=== PATIENT | female | born 1985 | race Caucasian/White ===

== ENCOUNTER 2017-01-22 09:13 | Emergency (ER) | payer OTHER, SELFPAY ==
[~2017-01-22] VITALS: Ht 154.9 cm; Wt 56.8 kg
[2017-01-22] MEDS ORDERED: IBUP80TA PO (09:43)
[2017-01-22] MEDS ORDERED: ONDANSETRON 4MG/2ML VIAL (J2405) IV ONE (09:45)
[2017-01-22 10:00] LABS: ADD MANUAL DIFFER YES; MEAN CORPUSCULAR HEMOGLOBIN 28.7 pg (27.0-33.0); MEAN CORPUSCULAR HGB CONC 32.1 g/dl (32.0-36.5); MEAN CORPUSCULAR VOLUME 89.3 fl (80.0-96.0); PLATELET COUNT, AUTOMATED 278 k/mm3 (150-450); RED CELL DISTRIBUTION WIDTH 13.1 % (11.5-14.5)
[2017-01-22] MEDS ORDERED: NS 1,000 ML IV ONE (10:00)
[2017-01-22 10:18] LABS: ALBUMIN 3.2 GM/DL (3.2-5.2); ALBUMIN/GLOBULIN RATIO 0.82 (1.00-1.93); ALKALINE PHOSPHATASE 169 U/L (45-117); ALT/SGPT 198 U/L (12-78); ANION GAP 7 MEQ/L (8-16); AST/SGOT 104 U/L (15-37); BILIRUBIN,DIRECT 0.3 MG/DL (0.0-0.2); BILIRUBIN,TOTAL 0.8 MG/DL (0.2-1.0); BLOOD UREA NITROGEN 9 MG/DL (7-18); CALCIUM LEVEL 8.7 MG/DL (8.5-10.1); CARBON DIOXIDE LEVEL 29 MEQ/L (21-32); CHLORIDE LEVEL 103 MEQ/L (98-107); CREATININE FOR GFR 0.96 MG/DL (0.55-1.02); GLOMERULAR FILTRATION RATE > 60.0 (>60); GLUCOSE, FASTING 96 MG/DL (70-105); POTASSIUM SERUM 3.1 MEQ/L (3.5-5.1); SODIUM LEVEL 139 MEQ/L (136-145); TOTAL PROTEIN 7.1 GM/DL (6.4-8.2)
[2017-01-22 10:34] LABS: EOSINOPHILS 1 % (0-5)
--- NOTE | 2017-01-22 13:33 | REP ---
TRANSABDOMINAL PELVIC ULTRASOUND: Transabdominal pelvic ultrasound performed. The urinary bladder measures 3.8 x 3.8 x 5.3 cm. Uterus measures 6.9 x 3.4 x 5.0 cm. Endometrial thickness is approximately 4 mm with no evidence of endometrial fluid collection. Evaluation of the adnexal regions is somewhat limited due to bowel gas. Ovaries however appear normal in size and echotexture, right ovary measuring 2.3 x 2.1 x 1.7 cm and left ovary 2.7 x 1.6 x 2.2 cm. No adnexal mass or cyst is seen. There is no free fluid. There is no evidence of ovarian torsion with blood flow seen in each ovary with duplex Doppler evaluation, RI right ovary 0.62 and left ovary 0.49. Patient could not consent for transvaginal imaging. IMPRESSION: Essentially negative pelvic ultrasound as discussed in detail above. Signed by Lj Garzon MD 01/22/2017 03:57 P
[2017-01-22 13:35] LABS: CONTROL LINE HCG INT CTR LINE PRESENT
[2017-01-22] MEDS ORDERED: DOXYCYCLINE HYCLATE 100 MG in D5W MINI-BAG PLUS 100 ML IV ONE (17:00)
[2017-01-22] MEDS ORDERED: cefTRIAXone SOD 250 MG VIAL (J0696) IM ONE (17:00)
[2017-01-22] MEDS ORDERED: metroNIDAZOLE 500 MG in APPROPRIATE DILUENT 1 EA IV ONE (17:00)
[2017-01-22] MEDS ORDERED: DOXY100C37 PO (17:01)
[2017-01-22] MEDS ORDERED: FLAG500T PO (17:02)
[2017-01-22 17:39] LABS: METHADONE URINE NEGATIVE (NEGATIVE)
[2017-01-22] MEDS ORDERED: FLUCONAZOLE 100 MG TAB PO ONE (17:45)
[2017-01-22] MEDS ORDERED: CIPROFLOXACIN 500 MG TAB PO ONE (17:45)
[2017-01-22] MEDS ORDERED: CIPR-249 PO (18:02)
[2017-01-22 18:42] VITALS: BP 101/52
== END 2017-01-22 18:49 | disposition home or self-care (01) ==
LOC: EDBD 09:13 → M ED 09:13 → EDSEX 09:13 → M ED 18:49
DX: N39.0 Urinary tract infection, site not specified (principal); N73.0 Acute parametritis and pelvic cellulitis

== ENCOUNTER → 2017-08-06 | Outpatient (CLI) | payer MEDICAID | LOC: M OUTALCOH 07:56 | DX: F11.20 Opioid dependence, uncomplicated (principal) ==

== ENCOUNTER 2017-08-14 13:25 | Outpatient (RCR) | payer MEDICAID | END 2017-09-09 | LOC: M OUTALCOH 08-20 11:00 | DX: F11.20 Opioid dependence, uncomplicated (principal) ==

== ENCOUNTER 2017-08-24 16:28 | Emergency (ER) | payer MEDICAID | END 2017-08-24 19:15 | disposition left against medical advice (07) | LOC: M ED 16:28 | DX: Z53.29 Procedure and treatment not carried out because of patient's decision for other reasons (principal) ==

== ENCOUNTER 2017-08-25 16:28 | Emergency (ER) | payer OTHER, MEDICAID ==
[2017-08-25] MEDS: ACETAMINOPH W/CODEINE #3 TAB UD PO (19:33)
[2017-08-25] MEDS: CLINDAMYCIN 150 MG CAP PO (19:33)
== END 2017-08-25 19:40 | disposition home or self-care (01) ==
LOC: M ED 16:28
DX: L02.413 Cutaneous abscess of right upper limb (principal)
CPT/HCPCS: 99283

== ENCOUNTER 2018-02-22 09:26 | Emergency (ER) | payer OTHER, MEDICAID ==
[2018-02-22] MEDS: LIDOCAINE 1% MDV 20ML VIAL SC (09:45)
[2018-02-22] MEDS: ACETAMINOPHEN 325 MG TAB PO (10:42)
== END 2018-02-22 11:34 | disposition home or self-care (01) ==
LOC: M ED 09:26
DX: S01.81XA Laceration without foreign body of other part of head, initial encounter (principal); S06.0X0A Concussion without loss of consciousness, initial encounter; Y04.0XXA Assault by unarmed brawl or fight, initial encounter; Y07.03 Male partner, perpetrator of maltreatment and neglect; Y92.009 Unspecified place in unspecified non-institutional (private) residence as the place of occurrence of the external cause; F17.200 Nicotine dependence, unspecified, uncomplicated
CPT/HCPCS: 70450

== ENCOUNTER 2018-04-22 00:23 | Emergency (ER) | payer MEDICAID, SELFPAY, OTHER ==
[2018-04-22] MEDS: KETOROLAC 30 MG/ML VIAL (J1885) IV ×2 (01:51)
[2018-04-22] MEDS: NS 1,000 ML IV ×2 (01:51)
[2018-04-22] MEDS: CLINDAMYCIN 900 MG in APPROPRIATE DILUENT 1 EA IV (01:52)
[2018-04-22 02:03] LABS: BASO % 0.2 % (0.0-1.0); EOS % 0.2 % (0.0-3.0); HEMATOCRIT 40.5 % (36.0-47.0); IMMATURE GRANULOCYTE % 0.4 % (0-3.0); LYMPH # 2.9 10^3/uL (1.5-4.5); LYMPH % 14.9 % (24.0-44.0); MEAN CORPUSCULAR HEMOGLOBIN 27.3 pg (27.0-33.0); MEAN CORPUSCULAR HGB CONC 32.1 g/dl (32.0-36.5); MEAN CORPUSCULAR VOLUME 84.9 fl (80.0-96.0); MONO # 1.5 10^3/uL (0.0-0.8); MONO % 7.6 % (0.0-5.0); NEUTROPHILS # 14.7 10^3/uL (1.8-7.7); NEUTROPHILS % 76.7 % (36.0-66.0); PLATELET COUNT, AUTOMATED 321 10^3/uL (150-450); RED BLOOD COUNT 4.77 10^6/uL (4.00-5.40); RED CELL DISTRIBUTION WIDTH 13.5 % (11.5-14.5); WHITE BLOOD COUNT 19.2 10^3/uL (4.0-10.0)
[2018-04-22 02:27] LABS: C REACTIVE PROTEIN QUANTITATIV 6.77 MG/DL (0.00-0.30)
== END 2018-04-22 03:21 | disposition home or self-care (01) ==
LOC: M ED 00:23
DX: L03.211 Cellulitis of face (principal); F17.210 Nicotine dependence, cigarettes, uncomplicated
CPT/HCPCS: J1885

== ENCOUNTER 2018-04-30 09:13 | Emergency (ER) | payer MEDICAID, SELFPAY ==
[2018-04-30] MEDS ORDERED: KETOROLAC 30 MG/ML VIAL (J1885) IV (09:45)
[2018-04-30] MEDS ORDERED: MORPHINE 4 MG/ML 1ML VIAL/SYRINGE (J2270) IV (09:45)
[2018-04-30] MEDS: NORCO, ANEXSIA 5/325MG TABLET (HYDROcodone/ACETAMINOPHEN) PO (10:53)
[2018-04-30] MEDS: CLINDAMYCIN 150 MG CAP PO (10:53)
[2018-04-30] MEDS: KETOROLAC TROMETHAMINE 10 MG TAB PO (10:54)
[2018-04-30 11:07] LABS: BASO % 0.2 % (0.0-1.0); EOS # 0.2 10^3/uL (0.0-0.50); HEMATOCRIT 37.5 % (36.0-47.0); HEMOGLOBIN 11.9 g/dl (12.0-15.5); IMMATURE GRANULOCYTE % 0.5 % (0-3.0); LYMPH # 2.4 10^3/uL (1.5-4.5); LYMPH % 15.9 % (24.0-44.0); MEAN CORPUSCULAR HEMOGLOBIN 27.4 pg (27.0-33.0); MEAN CORPUSCULAR HGB CONC 31.7 g/dl (32.0-36.5); MEAN CORPUSCULAR VOLUME 86.2 fl (80.0-96.0); MONO # 1.1 10^3/uL (0.0-0.8); NEUTROPHILS # 11.4 10^3/uL (1.8-7.7); NEUTROPHILS % 75.4 % (36.0-66.0); PLATELET COUNT, AUTOMATED 409 10^3/uL (150-450); RED BLOOD COUNT 4.35 10^6/uL (4.00-5.40); RED CELL DISTRIBUTION WIDTH 13.8 % (11.5-14.5); WHITE BLOOD COUNT 15.1 10^3/uL (4.0-10.0)
[2018-04-30 11:29] LABS: ANION GAP 7 MEQ/L (8-16); BLOOD UREA NITROGEN 10 MG/DL (7-18); C REACTIVE PROTEIN QUANTITATIV 1.23 MG/DL (0.00-0.30); CALCIUM LEVEL 8.4 MG/DL (8.5-10.1); CARBON DIOXIDE LEVEL 29 MEQ/L (21-32); CHLORIDE LEVEL 102 MEQ/L (98-107); CREATININE FOR GFR 0.65 MG/DL (0.55-1.30); GLOMERULAR FILTRATION RATE > 60.0 (>60); GLUCOSE, FASTING 88 MG/DL (70-100); POTASSIUM SERUM 4.1 MEQ/L (3.5-5.1); SODIUM LEVEL 138 MEQ/L (136-145)
[2018-04-30 11:41] LABS: ERYTHROCYTE SEDIMENTATION RATE 22 mm/hr (0-20)
[2018-04-30] MEDS: ACETAMINOPH W/CODEINE #3 TAB UD PO (11:58)
== END 2018-04-30 12:00 | disposition home or self-care (01) ==
LOC: M ED 09:13
DX: L03.011 Cellulitis of right finger (principal); Z79.2 Long term (current) use of antibiotics
CPT/HCPCS: 73140

== ENCOUNTER 2018-05-15 15:36 | Inpatient (IN) | payer OTHER, MEDICAID ==
[2018-05-15 17:19] LABS: BASO % 0.2 % (0.0-1.0); EOS # 0.1 10^3/uL (0.0-0.50); HEMATOCRIT 40.9 % (36.0-47.0); HEMOGLOBIN 12.9 g/dl (12.0-15.5); IMMATURE GRANULOCYTE % 0.2 % (0-3.0); LYMPH # 3.5 10^3/uL (1.5-4.5); LYMPH % 27.6 % (24.0-44.0); MEAN CORPUSCULAR HEMOGLOBIN 27.4 pg (27.0-33.0); MEAN CORPUSCULAR HGB CONC 31.5 g/dl (32.0-36.5); MEAN CORPUSCULAR VOLUME 86.8 fl (80.0-96.0); MONO # 0.7 10^3/uL (0.0-0.8); MONO % 5.6 % (0.0-5.0); NEUTROPHILS # 8.3 10^3/uL (1.8-7.7); NEUTROPHILS % 65.4 % (36.0-66.0); PLATELET COUNT, AUTOMATED 420 10^3/uL (150-450); RED BLOOD COUNT 4.71 10^6/uL (4.00-5.40); RED CELL DISTRIBUTION WIDTH 13.7 % (11.5-14.5); WHITE BLOOD COUNT 12.7 10^3/uL (4.0-10.0)
[2018-05-15 17:40] LABS: ANION GAP 6 MEQ/L (8-16); BLOOD UREA NITROGEN 10 MG/DL (7-18); C REACTIVE PROTEIN QUANTITATIV 0.32 MG/DL (0.00-0.30); CALCIUM LEVEL 8.9 MG/DL (8.5-10.1); CARBON DIOXIDE LEVEL 29 MEQ/L (21-32); CHLORIDE LEVEL 102 MEQ/L (98-107); GLOMERULAR FILTRATION RATE > 60.0 (>60); GLUCOSE, FASTING 53 MG/DL (70-100); POTASSIUM SERUM 4.1 MEQ/L (3.5-5.1); SODIUM LEVEL 137 MEQ/L (136-145)
[2018-05-15 17:58] LABS: ERYTHROCYTE SEDIMENTATION RATE 10 mm/hr (0-20)
[2018-05-15] MEDS: VANCOMYCIN HCL 1,000 MG, VIAL MATE ADAPTER 1 EACH in D5W 250 ML IV ×2 (18:37→21:41)
[2018-05-15] MEDS: PIPERACILLIN/TAZOBACTAM SOD 3.375 GM in D5W MINI-BAG PLUS 50 ML IV (19:48)
[2018-05-16] MEDS: MORPHINE 4 MG/ML 1ML VIAL/SYRINGE (J2270) IV ×3 (01:53→05:58)
[2018-05-16] MEDS: PIPERACILLIN/TAZOBACTAM SOD 3.375 GM in D5W MINI-BAG PLUS 50 ML IV ×3 (01:53→14:00)
[2018-05-16] MEDS: ACETAMINOPHEN TAB 650MG DOSE (2X325MG) PO ×2 (03:08→14:07)
[2018-05-16] MEDS: VANCOMYCIN HCL 1,000 MG, VIAL MATE ADAPTER 1 EACH in D5W 250 ML IV ×2 (05:25→13:17)
[2018-05-16] MEDS: NS 1,000 ML IV ×2 (07:03→08:06)
[2018-05-16] MEDS ORDERED: NS 500 ML IV (07:30)
[2018-05-16 08:00] LABS: BASO % 0.3 % (0.0-1.0); EOS # 0.3 10^3/uL (0.0-0.50); EOS % 2.8 % (0.0-3.0); HEMATOCRIT 33.2 % (36.0-47.0); IMMATURE GRANULOCYTE % 0.2 % (0-3.0); LYMPH # 3.4 10^3/uL (1.5-4.5); LYMPH % 36.5 % (24.0-44.0); MEAN CORPUSCULAR HEMOGLOBIN 27.9 pg (27.0-33.0); MEAN CORPUSCULAR HGB CONC 32.2 g/dl (32.0-36.5); MEAN CORPUSCULAR VOLUME 86.5 fl (80.0-96.0); MONO # 0.7 10^3/uL (0.0-0.8); NEUTROPHILS # 4.9 10^3/uL (1.8-7.7); NEUTROPHILS % 53.2 % (36.0-66.0); RED BLOOD COUNT 3.84 10^6/uL (4.00-5.40); RED CELL DISTRIBUTION WIDTH 14.1 % (11.5-14.5); WHITE BLOOD COUNT 9.2 10^3/uL (4.0-10.0)
[2018-05-16 08:06] LABS: HEMOGLOBIN 10.7 g/dl (12.0-15.5); PLATELET COUNT, AUTOMATED 290 10^3/uL (150-450)
[2018-05-16 08:10] LABS: MAGNESIUM LEVEL 1.9 MG/DL (1.8-2.4)
[2018-05-16 08:28] LABS: CONTROL LINE HCG INT CTR LINE PRESENT; HCG, SERUM QUALITATIVE NEGATIVE (NEGATIVE)
[2018-05-16 08:29] LABS: ALBUMIN 2.6 GM/DL (3.2-5.2); ALBUMIN/GLOBULIN RATIO 0.76 (1.00-1.93); ALKALINE PHOSPHATASE 81 U/L (45-117); ALT/SGPT 72 U/L (12-78); ANION GAP 6 MEQ/L (8-16); AST/SGOT 57 U/L (7-37); BILIRUBIN,TOTAL 0.3 MG/DL (0.2-1.0); BLOOD UREA NITROGEN 9 MG/DL (7-18); CALCIUM LEVEL 7.9 MG/DL (8.5-10.1); CARBON DIOXIDE LEVEL 28 MEQ/L (21-32); CHLORIDE LEVEL 105 MEQ/L (98-107); CREATININE FOR GFR 0.73 MG/DL (0.55-1.30); GLOMERULAR FILTRATION RATE > 60.0 (>60); GLUCOSE, FASTING 99 MG/DL (70-100); POTASSIUM SERUM 3.8 MEQ/L (3.5-5.1); SODIUM LEVEL 139 MEQ/L (136-145)
[2018-05-16 12:44] LABS: VANCOMYCIN LEVEL TROUGH 15.3 UG/ML (10.0-20.0)
[2018-05-16] MEDS: ENOXAPARIN 40 MG/0.4 ML SYRINGE (J1650) SC (13:17)
== END 2018-05-16 19:03 | disposition left against medical advice (07) | DRG 344 ==
LOC: M ED 15:36 → M ED INP 18:51 → M MSPAV 20:48
PROC: 0HDFXZZ Extraction of Right Hand Skin, External Approach (ICD-10-PCS; principal; 2018-05-15)
DX: M86.641 Other chronic osteomyelitis, right hand (principal); B95.62 Methicillin resistant Staphylococcus aureus infection as the cause of diseases classified elsewhere; F17.210 Nicotine dependence, cigarettes, uncomplicated

== ENCOUNTER 2019-09-03 11:39 | Emergency (ER) | payer MEDICAID, OTHER, SELFPAY ==
[~2019-09-03] VITALS: Ht 154.9 cm; Wt 61.4 kg
[~2019-09-03 11:39] MED LIST: ACET-716 PO; BACT800T5 PO; CIPR-249 PO; CLEO300C2 PO; DOXY100C37 PO; FLAG500T PO; HYDR-3715 PO; IBUP1TAB6 PO; IBUP80TA PO; KETO10TAB PO; NORC1TAB7 PO
[2019-09-03] MEDS ORDERED: NS 1,000 ML IV ONE (12:30)
[2019-09-03] MEDS ORDERED: IBUP-1720 PO (13:00)
[2019-09-03 13:04] LABS: BASO % 0.4 % (0.0-1.0); EOS # 0.4 10^3/uL (0.0-0.5); EOS % 3.7 % (0.0-3.0); HEMATOCRIT 37.7 % (36.0-47.0); HEMOGLOBIN 12.2 g/dl (12.0-15.5); LYMPH # 2.8 10^3/uL (1.5-5.0); LYMPH % 24.2 % (24.0-44.0); MEAN CORPUSCULAR HEMOGLOBIN 27.2 pg (27.0-33.0); MEAN CORPUSCULAR HGB CONC 32.4 g/dl (32.0-36.5); MEAN CORPUSCULAR VOLUME 84.2 fl (80.0-96.0); MONO # 0.9 10^3/uL (0.0-0.8); MONO % 7.7 % (0.0-5.0); NEUTROPHILS # 7.2 10^3/uL (1.5-8.5); NEUTROPHILS % 63.7 % (36.0-66.0); PLATELET COUNT, AUTOMATED 445 10^3/uL (150-450); RED BLOOD COUNT 4.48 10^6/uL (4.00-5.40); WHITE BLOOD COUNT 11.4 10^3/uL (4.0-10.0)
[2019-09-03] MEDS ORDERED: LIDOCAINE 2% MDV 20 ML VIAL SC ONE (13:15)
--- NOTE | 2019-09-03 13:19 | REP ---
Right hand ultrasound in the area of right hand swelling: Ultrasonography in the area of interest of the right hand reveals a complex fluid collection measuring 3.2 x 1.2 x 3.8 cm. Color Doppler assessment identifies vascular flow at the periphery of this fluid collection. This fluid collection is nonspecific and could represent hematoma, abscess or seroma. Electronically Signed by Lj Souza MD 09/03/2019 01:10 P
[2019-09-03 13:28] LABS: ERYTHROCYTE SEDIMENTATION RATE 25 mm/hr (0-20)
[2019-09-03 13:32] LABS: BLOOD UREA NITROGEN 11 MG/DL (7-18); C REACTIVE PROTEIN QUANTITATIV 3.15 MG/DL (0.00-0.30); CALCIUM LEVEL 8.6 MG/DL (8.5-10.1); CARBON DIOXIDE LEVEL 28 MEQ/L (21-32); CHLORIDE LEVEL 102 MEQ/L (98-107); CREATININE FOR GFR 0.67 MG/DL (0.55-1.30); GLOMERULAR FILTRATION RATE > 60.0 (>60); GLUCOSE, FASTING 110 MG/DL (70-100); POTASSIUM SERUM 4.4 MEQ/L (3.5-5.1); SODIUM LEVEL 135 MEQ/L (136-145)
[2019-09-03 13:34] LABS: AMPHETAMINES LEVEL URINE POSITIVE (NEGATIVE); BARBITURATES URINE NEGATIVE (NEGATIVE); BENZODIAZEPINES URINE NEGATIVE (NEGATIVE); CANNABINOIDS URINE NEGATIVE (NEGATIVE); COCAINE METABOLITE URINE NEGATIVE (NEGATIVE); METHADONE URINE NEGATIVE (NEGATIVE); OPIATES URINE POSITIVE (NEGATIVE); PHENCYCLIDINE URINE NEGATIVE (NEGATIVE)
[2019-09-03] MEDS ORDERED: VANCOMYCIN HCL 1,250 MG in D5W 250 ML IV ONE (13:45)
[2019-09-03] MEDS ORDERED: VANCOMYCIN HCL 750 MG, VIAL MATE ADAPTER 1 EACH in D5W 250 ML IV ONE (14:00)
[2019-09-03] MEDS ORDERED: VANCOMYCIN HCL 500 MG in D5W MINI-BAG PLUS 100 ML IV ONE (15:00)
[2019-09-03] MEDS ORDERED: LR 1,000 ML IV ONE (15:15)
[2019-09-03 15:42] VITALS: BP 129/83
--- NOTE | 2019-09-05 09:45 | ED PDOC ---
Post-Departure Follow-Up [facility] faxed formal report of extrem us for fu John Farooq MD Sep 05, 2019 09:45
== END 2019-09-03 15:50 | disposition left against medical advice (07) ==
LOC: M ED 11:39
DX: L02.413 Cutaneous abscess of right upper limb (principal); L03.113 Cellulitis of right upper limb; F11.20 Opioid dependence, uncomplicated; E05.90 Thyrotoxicosis, unspecified without thyrotoxic crisis or storm; F33.9 Major depressive disorder, recurrent, unspecified; F41.9 Anxiety disorder, unspecified; F43.10 Post-traumatic stress disorder, unspecified; F17.210 Nicotine dependence, cigarettes, uncomplicated
CPT/HCPCS: 10060; 76882; 80048; 80307; 81001; 83605; 85025; 85652; 86140; 87040; 87070; 87077; 87088; 87186; 87205; 96361; 96365; 96366; 99284; J3370

== ENCOUNTER 2021-03-08 01:56 | Emergency (ER) | payer MEDICAID ==
[~2021-03-08 01:56] MED LIST changes: -DOXY100C37 PO; +DOXY1CAP62 PO; +IBUP-1720 PO
[2021-03-08 03:34] LABS: HEMATOCRIT 37.7 % (36.0-47.0); HEMOGLOBIN 12.1 g/dl (12.0-15.5); MEAN CORPUSCULAR HEMOGLOBIN 28.2 pg (27.0-33.0); MEAN CORPUSCULAR HGB CONC 32.1 g/dl (32.0-36.5); MEAN CORPUSCULAR VOLUME 87.9 fl (80.0-96.0); PLATELET COUNT, AUTOMATED 274 10^3/uL (150-450); RED BLOOD COUNT 4.29 10^6/uL (4.00-5.40); WHITE BLOOD COUNT 8.9 10^3/uL (4.0-10.0)
[2021-03-08 03:56] LABS: HCG, SERUM QUALITATIVE NEGATIVE (NEGATIVE)
[2021-03-08 04:15] LABS: ACETAMINOPHEN LEVEL < 2.0 UG/ML (10.0-30.0); ALBUMIN 3.1 GM/DL (3.2-5.2); ALT/SGPT 52 U/L (12-78); BILIRUBIN,DIRECT < 0.1 MG/DL (0.0-0.2); BILIRUBIN,TOTAL 0.4 MG/DL (0.2-1.0); BLOOD UREA NITROGEN 7 MG/DL (7-18); CALCIUM LEVEL 8.7 MG/DL (8.5-10.1); CARBON DIOXIDE LEVEL 27 MEQ/L (21-32); CHLORIDE LEVEL 108 MEQ/L (98-107); CREATININE FOR GFR 0.73 MG/DL (0.55-1.30); ETHYL ALCOHOL (ETHANOL) < 0.003 % (0.000-0.010); GLOMERULAR FILTRATION RATE > 60.0 (>60); GLUCOSE, FASTING 82 MG/DL (70-100); POTASSIUM SERUM 3.9 MEQ/L (3.5-5.1); SALICYLATE LEVEL < 1.7 MG/DL (5.0-30.0); SODIUM LEVEL 139 MEQ/L (136-145); TOTAL PROTEIN 7.6 GM/DL (6.4-8.2)
[2021-03-08 11:00] VITALS: BP 106/64
--- NOTE | 2021-03-08 21:20 | ECGEPIP ---
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
== END 2021-03-08 11:14 | disposition home or self-care (01) ==
LOC: M ED 01:56
DX: F11.129 Opioid abuse with intoxication, unspecified (principal); F17.210 Nicotine dependence, cigarettes, uncomplicated

== ENCOUNTER 2021-12-29 20:27 | Emergency (ER) | payer OTHER ==
[~2021-12-29] VITALS: Ht 160 cm; Wt 64.9 kg
[~2021-12-29 20:27] MED LIST changes: +DOXY-443 PO; -DOXY1CAP62 PO
[2021-12-29] MEDS ORDERED: NS 1,000 ML IV ONE (20:30)
[2021-12-29] MEDS ORDERED: ISOVUE-370 76% 100ML VIAL As Ordered ONE ×2 (20:33→22:12)
[2021-12-29] MEDS ORDERED: LORazepam 2 MG/ML VIAL IM STA (20:51)
[2021-12-29 22:43] LABS: INR 0.98; PARTIAL THROMBOPLASTIN TIME 22.4 SECONDS (25.9-37.0); PROTHROMBIN TIME 13.4 SECONDS (12.7-14.5)
[2021-12-29 22:52] LABS: BASO # 0.1 10^3/uL (0.0-0.2); BASO % 0.4 % (0.0-1.0); EOS % 0.1 % (0.0-3.0); HEMATOCRIT 42.6 % (36.0-47.0); HEMOGLOBIN 14.2 g/dl (12.0-15.5); LYMPH # 2.7 10^3/uL (1.5-5.0); LYMPH % 22.5 % (24.0-44.0); MEAN CORPUSCULAR HEMOGLOBIN 28.7 pg (27.0-33.0); MEAN CORPUSCULAR HGB CONC 33.3 g/dl (32.0-36.5); MEAN CORPUSCULAR VOLUME 86.1 fl (80.0-96.0); MONO # 0.9 10^3/uL (0.0-0.8); MONO % 7.3 % (2.0-8.0); NEUTROPHILS # 8.4 10^3/uL (1.5-8.5); NEUTROPHILS % 69.4 % (36.0-66.0); PLATELET COUNT, AUTOMATED 347 10^3/uL (150-450); RED BLOOD COUNT 4.95 10^6/uL (4.00-5.40); WHITE BLOOD COUNT 12.1 10^3/uL (4.0-10.0)
[2021-12-29 22:59] LABS: CK-MB VALUE MASS 1.2 NG/ML (<3.6); MB/CK RELATIVE INDEX 1.62 (< OR =4)
[2021-12-29 23:06] LABS: ALBUMIN 3.6 GM/DL (3.2-5.2); ALT/SGPT 65 U/L (12-78); AMYLASE 71 U/L (25-115); BILIRUBIN,DIRECT 0.2 MG/DL (0.0-0.2); BILIRUBIN,TOTAL 0.7 MG/DL (0.2-1.0); BLOOD UREA NITROGEN 14 MG/DL (7-18); CALCIUM LEVEL 9.2 MG/DL (8.5-10.1); CARBON DIOXIDE LEVEL 25 MEQ/L (21-32); CHLORIDE LEVEL 104 MEQ/L (98-107); CREATININE FOR GFR 0.82 MG/DL (0.55-1.30); ETHYL ALCOHOL (ETHANOL) < 0.003 % (0.000-0.010); GLOMERULAR FILTRATION RATE > 60.0 (>60); GLUCOSE, FASTING 95 MG/DL (70-100); LIPASE 152 U/L (73-393); POTASSIUM SERUM 3.9 MEQ/L (3.5-5.1); SODIUM LEVEL 139 MEQ/L (136-145)
[2021-12-30 01:42] VITALS: BP 127/77
== END 2021-12-30 01:50 | disposition home or self-care (01) ==
LOC: M ED 20:27
DX: S10.81XA Abrasion of other specified part of neck, initial encounter (principal); S00.01XA Abrasion of scalp, initial encounter; X83.8XXA Intentional self-harm by other specified means, initial encounter; Y92.148 Other place in prison as the place of occurrence of the external cause
CPT/HCPCS: 36556; 70450; 70498; 72125; 72128; 80048; 80076; 82077; 82150; 82550; 82553; 83605; 83690; 85025; 85610; 85730; 86850; 86900; 86901; 93041; 94760; 96360; 96361; 96372; 99285; J2060; Q9967

== ENCOUNTER 2023-11-30 18:05 | Emergency (ER) | payer OTHER ==
[~2023-11-30] VITALS: Ht 157.5 cm; Wt 65.3 kg
[~2023-11-30 18:05] MED LIST changes: +DOXY-323 PO; -DOXY-443 PO
[2023-11-30 20:18] LABS: BASO # 0.1 10^3/uL (0.0-0.2); BASO % 0.5 % (0.0-1.0); EOS % 0.3 % (0.0-3.0); HEMATOCRIT 48.4 % (36.0-47.0); HEMOGLOBIN 16.6 g/dl (12.0-15.5); LYMPH # 3.3 10^3/uL (1.5-5.0); LYMPH % 34.3 % (24.0-44.0); MEAN CORPUSCULAR HEMOGLOBIN 28.9 pg (27.0-33.0); MEAN CORPUSCULAR HGB CONC 34.3 g/dl (32.0-36.5); MEAN CORPUSCULAR VOLUME 84.2 fl (80.0-96.0); MONO # 0.6 10^3/uL (0.0-0.8); MONO % 5.9 % (2.0-8.0); NEUTROPHILS # 5.7 10^3/uL (1.5-8.5); NEUTROPHILS % 58.8 % (36.0-66.0); PLATELET COUNT, AUTOMATED 334 10^3/uL (150-450); RED BLOOD COUNT 5.75 10^6/uL (4.00-5.40); WHITE BLOOD COUNT 9.7 10^3/uL (4.0-10.0)
[2023-11-30 20:26] LABS: HCG, SERUM QUALITATIVE NEGATIVE (NEGATIVE)
[2023-11-30 21:29] LABS: FREE T4 0.72 NG/DL (0.89-1.76); THYROID STIMULATING HORMONE 2.142 uIU/ML (0.55-4.78)
[2023-11-30 21:32] LABS: ALBUMIN 3.9 G/DL (3.2-5.2); ALKALINE PHOSPHATASE 68 U/L (46-116); ALT/SGPT 30 U/L (7.0-40); AST/SGOT 34 U/L (<34); BILIRUBIN,DIRECT 0.1 MG/DL (<0.4); BILIRUBIN,TOTAL 0.4 MG/DL (0.3-1.2); BLOOD UREA NITROGEN 12 MG/DL (9-23); CALCIUM LEVEL 9.2 MG/DL (8.5-10.1); CARBON DIOXIDE LEVEL 20 MMOL/L (20-31); CHLORIDE LEVEL 107 MMOL/L (98-107); CK-MB VALUE MASS < 1.0 NG/ML (<3.6); CPK CREATINE PHOSPHOKINASE 43 U/L (34-145); CREATININE FOR GFR 0.66 MG/DL (0.55-1.30); GLOMERULAR FILTRATION RATE > 60.0 (>58); GLUCOSE, FASTING 80 MG/DL (60-100); MB/CK RELATIVE INDEX 2.32 (< OR =4); POTASSIUM SERUM 4.8 MMOL/L (3.5-5.1); SODIUM LEVEL 138 MMOL/L (136-145); TOTAL PROTEIN 8.2 G/DL (5.7-8.2)
[2023-11-30 21:50] LABS: D-DIMER QUANT 5.14 ug/mL (<0.5); INR 1.11
[2023-11-30] MEDS ORDERED: ISOVUE-370 76% 100ML VIAL As Ordered ONE (22:19)
[2023-12-01] MEDS: NS 1,000 ML IV ONE ×2 (00:30→04:35)
[2023-12-01] MEDS: KETOROLAC 30 MG/ML 1ML VIAL IV ONE (03:37)
[2023-12-01 06:01] VITALS: BP 140/83; TEMP 98.5
[2023-12-01] MEDS ORDERED: KETO10TAB PO (06:26)
[2023-12-01 06:31] VITALS: O2SAT 97
== END 2023-12-01 07:13 | disposition home or self-care (01) ==
LOC: M ED 18:05
DX: F19.139 Other psychoactive substance abuse with withdrawal, unspecified (principal); E04.1 Nontoxic single thyroid nodule; F17.200 Nicotine dependence, unspecified, uncomplicated
CPT/HCPCS: 36556; 71045; 71275; 80048; 80076; 82550; 82553; 84439; 84443; 84484; 84703; 85025; 85379; 85610; 85730; 93005; 93041; 94760; 96361; 96374; 99291; J1885; Q9967

== ENCOUNTER 2024-02-24 23:38 | Emergency (ER) | payer OTHER ==
[~2024-02-24] VITALS: Ht 157.5 cm; Wt 69.3 kg
[2024-02-24 23:39] VITALS: TEMP 97.1
[2024-02-25] MEDS: ONDANSETRON 4MG ORAL DISINTEGRATING TAB PO ONE (01:50)
[2024-02-25 02:24] LABS: ALBUMIN 3.8 G/DL (3.2-5.2); ALKALINE PHOSPHATASE 50 U/L (46-116); ALT/SGPT 57 U/L (7.0-40); AST/SGOT 83 U/L (<34); BILIRUBIN,DIRECT 0.1 MG/DL (<0.4); BILIRUBIN,TOTAL 0.3 MG/DL (0.3-1.2); BLOOD UREA NITROGEN 8 MG/DL (9-23); CALCIUM LEVEL 8.8 MG/DL (8.5-10.1); CARBON DIOXIDE LEVEL 29 MMOL/L (20-31); CHLORIDE LEVEL 102 MMOL/L (98-107); GLOMERULAR FILTRATION RATE > 60.0 (>58); GLUCOSE, FASTING 176 MG/DL (60-100); LIPASE 28 U/L (12-53); SODIUM LEVEL 132 MMOL/L (136-145); TOTAL PROTEIN 7.4 G/DL (5.7-8.2)
[2024-02-25 02:25] LABS: HCG, SERUM QUALITATIVE NEGATIVE (NEGATIVE)
[2024-02-25 03:40] LABS: BASO % 0.3 % (0.0-1.0); EOS # 0.1 10^3/uL (0.0-0.5); EOS % 1.1 % (0.0-3.0); HEMATOCRIT 39.5 % (36.0-47.0); HEMOGLOBIN 12.6 g/dl (12.0-15.5); LYMPH # 2.6 10^3/uL (1.5-5.0); LYMPH % 35.9 % (24.0-44.0); MEAN CORPUSCULAR HEMOGLOBIN 28.9 pg (27.0-33.0); MEAN CORPUSCULAR HGB CONC 31.9 g/dl (32.0-36.5); MEAN CORPUSCULAR VOLUME 90.6 fl (80.0-96.0); MONO # 0.5 10^3/uL (0.0-0.8); MONO % 7.1 % (2.0-8.0); NEUTROPHILS # 4.1 10^3/uL (1.5-8.5); NEUTROPHILS % 55.5 % (36.0-66.0); PLATELET COUNT, AUTOMATED 299 10^3/uL (150-450); RED BLOOD COUNT 4.36 10^6/uL (4.00-5.40); WHITE BLOOD COUNT 7.4 10^3/uL (4.0-10.0)
[2024-02-25] MEDS ORDERED: CIPRHCOTIC AS (04:50)
[2024-02-25] MEDS ORDERED: AMOX875T2 PO (04:50)
[2024-02-25 04:56] VITALS: BP 127/67; O2SAT 96
== END 2024-02-25 05:01 | disposition home or self-care (01) ==
LOC: M ED 23:38
DX: H60.92 Unspecified otitis externa, left ear (principal); R11.2 Nausea with vomiting, unspecified; F17.290 Nicotine dependence, other tobacco product, uncomplicated; F19.10 Other psychoactive substance abuse, uncomplicated